=== PATIENT | male | born 1970 | race Caucasian/White ===

== ENCOUNTER 2019-05-25 18:32 | Emergency (ER) | payer BC ==
[~2019-05-25] VITALS: Ht 188 cm; Wt 89.0 kg
[2019-05-25 19:06] VITALS: BP 110/62
== END 2019-05-25 20:51 | disposition left against medical advice (07) ==
LOC: ER 18:32
DX: Z53.21 Procedure and treatment not carried out due to patient leaving prior to being seen by health care provider (principal); Z88.8 Allergy status to other drugs, medicaments and biological substances